=== PATIENT | female | born 1990 | race Caucasian/White ===

== ENCOUNTER → 2017-10-30 | Outpatient (CLI) | payer OTHER ==
[~2017-10-30] MED LIST: AMLO-110 PO; HYDR2TAB PO; LABE1TAB28 PO; LISI40TA PO; TIZA1CAP2 PO
[2017-10-30 17:47] LABS: BASO % 0.2 %; BASO ABS # 0.03 K/uL (0-0.2); EOS % 2.2 %; EOS ABS # 0.33 K/uL (0-0.5); HEMATOCRIT 38.2 % (37-47); HEMOGLOBIN 12.5 g/dL (12.0-16.0); LYMPH ABS # 2.25 K/uL (1.2-3.4); MEAN CELL VOLUME 90.5 fL (80-100); MEAN CORPUSCULAR HEMOGLOBIN 29.6 pg (25-34); MEAN CORPUSCULAR HGB CONC 32.7 g/dl (32-36); MEAN PLATELET VOLUME 12.6 fL (7.4-10.4); MONO % 6.8 %; MONO ABS # 1.01 K/uL (0.11-0.59); NEUT % 75.1 %; NEUT ABS # 11.24 K/uL (1.4-6.5); PLATELET COUNT 197 K/uL (130-400); RED CELL DISTRIBUTION WIDTH CV 13.1 % (11.5-14.5); WHITE BLOOD COUNT 14.96 K/uL (4.8-10.8)
[2017-10-30 18:18] LABS: ALBUMIN 2.6 gm/dl (3.4-5.0); ALKALINE PHOSPHATASE 212 U/L (45-117); ALT/SGPT 16 U/L (12-78); AST/SGOT 10 U/L (15-37); TOTAL PROTEIN 6.7 gm/dl (6.4-8.2)
== END | disposition home or self-care (01) ==
LOC: C.LABPBG 13:19
PROVIDERS: ATTEND Family Medicine
DX: F11.20 Opioid dependence, uncomplicated (principal)

== ENCOUNTER 2017-11-30 17:19 | Inpatient (IN) | payer OTHER ==
[2017-11-30] MEDS ORDERED: LACTATED RINGER'S 1000ML 1,000 ML IV SCH (17:36)
[2017-11-30] MEDS ORDERED: NIFEdipine 10 MG CAP PO STA (17:43)
[2017-11-30] MEDS ORDERED: NIFEdipine 10 MG CAP ONE ×3 (17:45→18:13)
[2017-11-30 18:13] LABS: BASO % 0.2 %; BASO ABS # 0.02 K/uL (0-0.2); EOS % 0.9 %; EOS ABS # 0.11 K/uL (0-0.5); HEMATOCRIT 36.1 % (37-47); HEMOGLOBIN 12.1 g/dL (12.0-16.0); IG# 0.05 K/uL (0.00-0.02); LYMPH % 17.4 %; LYMPH ABS # 2.05 K/uL (1.2-3.4); MEAN CELL VOLUME 85.7 fL (80-100); MEAN CORPUSCULAR HEMOGLOBIN 28.7 pg (25-34); MEAN PLATELET VOLUME 12.5 fL (7.4-10.4); MONO % 4.7 %; MONO ABS # 0.56 K/uL (0.11-0.59); NEUT % 76.4 %; NEUT ABS # 9.02 K/uL (1.4-6.5); NUCLEATED RED BLOOD CELL ABS 0.02 K/uL (0-0); PLATELET COUNT 188 K/uL (130-400); RED CELL DISTRIBUTION WIDTH CV 13.5 % (11.5-14.5); RED CELL DISTRIBUTION WIDTH SD 41.8 fL (36.4-46.3); WHITE BLOOD COUNT 11.81 K/uL (4.8-10.8)
[2017-11-30 18:18] LABS: MEAN CORPUSCULAR HGB CONC 33.5 g/dl (32-36)
[2017-11-30 18:40] LABS: ALT/SGPT 13 U/L (12-78); AST/SGOT 11 U/L (15-37); CREATININE 0.83 mg/dl (0.60-1.20)
[2017-11-30] MEDS ORDERED: BETAMETH SOD PHOS/ACETATE IA 6 MG/ML IM ONE (20:00)
[2017-11-30] MEDS ORDERED: MAG SULFATE BOLUS FROM BAG IV ONE (20:00)
[2017-11-30] MEDS ORDERED: MAGNESIUM SULFATE / WTR 1,000 ML IV ONE (20:20)
--- NOTE | 2017-12-04 12:27 | DISCHARGE SUMMARY ---
Barbara arrived unannounced in labor and delivery on 11/30/2017. At that time she had severe hypertension and was treated and stabilized with nifedipine. The patient had no care and she was approximately 35-39 weeks. Because of this and Subutex use I reviewed the case with pediatrics and they recommended transfer of the patient to a tertiary care center with intensive care. As a result of this Dr. Jasvir Schmidt from [facility] accepted the patient's transfer and she was transferred stable to [place] on that evening. The patient's blood pressure had initially presented as 200/130 but she was discharged normotensive at that time. heart rate was category 1 and reactive. The patient was not in labor and again was sent by ambulance.
== END 2017-11-30 20:51 | disposition short-term general hospital (02) | DRG 781 ==
LOC: C.OPB 17:19 → C.LD 17:19 → C.OPB 18:04 → C.LD 18:04
PROVIDERS: ADMIT Obstetrics & Gynecology; ATTEND Obstetrics & Gynecology
DX: O16.3 Unspecified maternal hypertension, third trimester (principal); O99.323 Drug use complicating pregnancy, third trimester; O99.333 Smoking (tobacco) complicating pregnancy, third trimester; F17.219 Nicotine dependence, cigarettes, with unspecified nicotine-induced disorders; O09.33 Supervision of pregnancy with insufficient antenatal care, third trimester; Z3A.35 35 weeks gestation of pregnancy; Z79.891 Long term (current) use of opiate analgesic